=== PATIENT | female | born 1980 | race Caucasian/White ===

== ENCOUNTER 2016-12-17 15:53 | Emergency (ER) | payer MEDICAID ==
[~2016-12-17] VITALS: Ht 167.6 cm; Wt 132.9 kg
[2016-12-17 16:23] VITALS: BP 125/95
--- NOTE | 2016-12-17 19:15 | NUR ---
PATIENT LEFT WITHOUT BEING SEEN BY DR. SERNA. NO FURTHER CARE PROVIDED FOR PATIENT.
== END 2016-12-17 19:15 | disposition left against medical advice (07) ==
LOC: MED 15:53
DX: R29.810 Facial weakness (principal); Z53.21 Procedure and treatment not carried out due to patient leaving prior to being seen by health care provider